=== PATIENT | female | born 1975 | race Caucasian/White ===

== ENCOUNTER → 2017-07-15 | Outpatient (CLI) | payer BC ==
[~2017-07-15] MED LIST: NO HOME MEDICATIONS; NORCO 325 MG-51 TAB PO
== END ==
LOC: MC.RAD 14:01
DX: Z12.31 Encounter for screening mammogram for malignant neoplasm of breast (principal)

== ENCOUNTER 2018-08-05 14:05 | Day surgery (SDC) | payer BC ==
[~2018-08-05] VITALS: Ht 165.1 cm; Wt 57.3 kg
[2018-08-05 14:47] VITALS: BP 103/53; PULSE 65; TEMP 97.7
[2018-08-05 16:20] VITALS: BP 107/54; PULSE 75
--- NOTE | 2018-08-05 16:20 | NUR ---
Pt to [facility] via cart from [employer]. Pt drowsy, but awake. Denies pain or nausea. Pt ambulates to recliner with stand by assistance. Water given per pt request. No visitors here with pt at this time. Call light within reach.
[2018-08-05 16:35] VITALS: BP 97/58; PULSE 58
--- NOTE | 2018-08-05 16:35 | NUR ---
Pt continues to rest. denies needs. Call light within reach.
[2018-08-05 16:50] VITALS: BP 97/60; PULSE 55
--- NOTE | 2018-08-05 16:50 | NUR ---
Discharge instructions reviewed. Pt voices understanding. IV site discontinued with all parts intact. Pt up to dress. Call light within reach.
--- NOTE | 2018-08-05 17:15 | NUR ---
Pt escorted to private car via wheel chair. Pt accompanied home by her son.
== END 2018-08-05 17:27 | disposition home or self-care (01) ==
LOC: SDCO 14:05
DX: K20.9 Esophagitis, unspecified (principal); R13.12 Dysphagia, oropharyngeal phase; Z88.0 Allergy status to penicillin; Z90.49 Acquired absence of other specified parts of digestive tract
CPT/HCPCS: J2250; J3010

== ENCOUNTER → 2019-09-05 | Outpatient (CLI) | payer BC | LOC: MC.RAD 11:15 | DX: Z12.31 Encounter for screening mammogram for malignant neoplasm of breast (principal) ==

== ENCOUNTER → 2023-12-20 | Outpatient (CLI) | payer OTHER | LOC: MC.RAD 13:48 | DX: Z12.31 Encounter for screening mammogram for malignant neoplasm of breast (principal) ==